=== PATIENT | female | born 1955 | race Caucasian/White ===

== ENCOUNTER 2016-06-03 20:39 | Emergency (ER) | payer BC ==
[~2016-06-03] VITALS: Ht 165.1 cm; Wt 68.0 kg
[2016-06-03 20:40] VITALS: BP 122/82
[2016-06-03 21:41] VITALS: BP 122/82
--- NOTE | 2016-06-03 21:57 | Emergency Room Report ---
History of Present Illness General Chief Complaint: Multiple Trauma/Fall Source: Patient, Family Member, EMS Present Illness HPI 60 YO F BIBEMS for ?suspected ETOH intoxication. Patient actively trying to ambulate out of ED but with ataxic gait. States that "my friends are worried about me and my drinking." Denies any fall, hitting head, other injury. Denies other medical problems. Patient had "a couple drinks tonight." She also changed into her pajamas before she let EMS take her to the hospital. Allergies: Coded Allergies: No Known Allergies (Unverified , 06/03/16) Patient History Past Medical History: none Past Surgical History: none Pertinent Family History: none Social History: Reports: alcohol use, Denies: drug use, smoking Last Menstrual Period: YRS Now: Yes Immunizations: UTD Reviewed Nursing Documentation: PMH: Agreed, PSxH: Agreed Nursing Documentation-PMH Past Medical History: No History, Except For Review of Systems All Other Systems: negative except mentioned in HPI Physical Exam Vital Signs Date Time Temp Pulse Resp B/P Pulse Ox O2 Delivery O2 Flow Rate FiO2 06/03/16 20:34 98.6 71 20 122/82 100 Room Air Sp02 EP Interpretation: reviewed, normal General Appearance: normal inspection, well appearing, no apparent distress, alert, GCS 15, non-toxic, other - +AOB Head: normocephalic, atraumatic Eyes: bilateral eye EOMI, bilateral eye PERRL ENT: normal ENT inspection, hearing grossly normal, normal voice Neck: normal inspection, full range of motion, supple, no bony tend Respiratory: normal inspection, lungs clear, normal breath sounds, no respiratory distress, no retraction, no wheezing Cardiovascular #1: regular rate, rhythm, no edema Gastrointestinal: normal inspection, normal bowel sounds, non tender, soft, no guarding, no hernia Genitourinary: no CVA tenderness Musculoskeletal: normal inspection, back normal, normal range of motion, Alonzo' s Sign negative Neurologic: normal inspection, alert, responsive, net finisher III-XII nml as tested, motor strength/tone normal, speech normal, other - Thinks day is Thursday and Month is June. Otherwise oriented to self, location, year Psychiatric: normal inspection, judgement/insight normal, mood/affect normal Skin: normal inspection, normal color, no rash Medical Decision Making Diagnostic Impression: Primary Impression: Alcohol intoxication Qualified Codes: F10.120 - Alcohol abuse with intoxication, uncomplicated ER Course 60 YO F with acute ETOH intoxication. Atraumatic. VSS. Afebrile. Patient's bedside, wants to take her home. Denies any injury. Not concerned for ETOH abuse DC patient home with Advised to drink in moderation, discuss rehab as needed with PMD Last Vital Signs Date Time Temp Pulse Resp B/P Pulse Ox O2 Delivery O2 Flow Rate FiO2 06/03/16 21:41 74 20 122/82 100 Room Air 06/03/16 20:40 98.6 Status: improved Disposition: HOME, SELF-CARE Condition: Improved Referrals: NOT CHOSEN IPA/,REFERRING (PCP) Patient Instructions: Alcohol Use Disorder, Alcohol Intoxication, [id number] KYLAH HUTTON M.D. Jun 03, 2016 21:57
== END 2016-06-03 21:45 | disposition home or self-care (01) ==
LOC: EDBD 20:39 → EMR 21:05
DX: F10.120 Alcohol abuse with intoxication, uncomplicated (principal)
CPT/HCPCS: 99284